=== PATIENT | male | born 1950 | race Caucasian/White ===

== ENCOUNTER 2018-02-13 08:04 | Emergency (ER) | payer MEDICARE, OTHER ==
--- NOTE | 2018-02-13 09:48 | ULT ---
VENOUS DUPLEX SONOGRAM LEFT LOWER EXTREMITY: Date: 02/13/18 HISTORY: Left leg pain and edema. FINDINGS: The left common femoral vein and greater saphenous junction were evaluated along with the femoral, de ep femoral, popliteal, and posterior tibial veins. There is good color and spectral Doppler flow, com pression, and augmentation. Sluggish flow suggests poor cardiac output. IMPRESSION: No sonographic evidence of deep venous thrombosis within the left lower extremity. POS: RACHELLE
== END 2018-02-13 10:04 | disposition home or self-care (01) ==
LOC: ERS 08:04
DX: M79.89 Other specified soft tissue disorders (principal); Z86.718 Personal history of other venous thrombosis and embolism; I10 Essential (primary) hypertension; F17.210 Nicotine dependence, cigarettes, uncomplicated; Z79.01 Long term (current) use of anticoagulants; Z79.899 Other long term (current) drug therapy

== ENCOUNTER 2018-04-16 09:33 | Outpatient (CLI) | payer MEDICARE, OTHER ==
--- NOTE | 2018-04-16 11:49 | ULT ---
VENOUS DOPPLER ULTRASOUND OF THE LEFT LOWER EXTREMITY: Date: 04/16/18 HISTORY: Left lower extremity pain and edema and redness. TECHNIQUE: Monzon scale ultrasound with color flow and spectral Doppler imaging of the deep venous system of the l eft lower extremity performed. FINDINGS: There is good flow, compression, and augmentation noted in the left common femoral, femoral, deep fem oral, popliteal, posterior tibial, and greater saphenous veins. There is sluggish flow likely due to poor cardiac output. Prominent lymph nodes are seen in the left groin. IMPRESSION: No evidence of deep venous thrombosis in the left lower extremity. POS: OFF
== END 2018-04-16 09:34 | disposition home or self-care (01) ==
LOC: ULT 09:33
PROVIDERS: ATTEND Internal Medicine Hematology & Oncology
DX: I82.90 Acute embolism and thrombosis of unspecified vein (principal); R60.0 Localized edema; M79.605 Pain in left leg